=== PATIENT | male | born 1955 | race African-American/Black ===

== ENCOUNTER 2017-10-20 02:51 | Emergency (ER) | payer OTHER ==
[~2017-10-20] VITALS: Ht 167.6 cm; Wt 72.6 kg
[2017-10-20 04:03] LABS: PLATELET COUNT 156 K/uL (142-355); POTASSIUM 3.9 mmol/L (3.6-5.2); SODIUM 141 mmol/L (136-145)
[2017-10-20 04:30] VITALS: BP 164/96; TEMP 98
== END 2017-10-20 04:33 | disposition home or self-care (01) ==
LOC: ED 02:51
DX: R51 Headache (principal); M54.5 Low back pain
CPT/HCPCS: 36415; 80053; 81000; 85027; 96374; 96375; 99283; J1885; J2405

== ENCOUNTER 2021-03-10 11:39 | Outpatient (CLI) | payer OTHER | END 2021-03-10 21:49 | disposition home or self-care (01) | LOC: RAD 11:39 | PROVIDERS: ATTEND Nurse Practitioner Family | DX: M06.4 Inflammatory polyarthropathy (principal); M25.561 Pain in right knee; M25.562 Pain in left knee; M79.671 Pain in right foot; M79.672 Pain in left foot ==

== ENCOUNTER 2022-04-17 10:43 | Outpatient (CLI) | payer OTHER | END 2022-04-17 18:51 | disposition home or self-care (01) | LOC: RAD 10:43 | PROVIDERS: ATTEND Nurse Practitioner Family | DX: E55.9 Vitamin D deficiency, unspecified (principal); M05.79 Rheumatoid arthritis with rheumatoid factor of multiple sites without organ or systems involvement; M06.4 Inflammatory polyarthropathy; M85.89 Other specified disorders of bone density and structure, multiple sites; Z79.899 Other long term (current) drug therapy ==